=== PATIENT | male | born 1975 | race Caucasian/White ===

== ENCOUNTER → 2017-04-24 | Emergency (ER) | payer OTHER ==
[~2017-04-24] VITALS: Ht 175.3 cm; Wt 73.5 kg
== END | disposition left against medical advice (07) ==
LOC: ER 22:54
DX: Z53.20 Procedure and treatment not carried out because of patient's decision for unspecified reasons (principal)

== ENCOUNTER 2019-01-07 08:14 | Outpatient (CLI) | payer OTHER | END 2019-01-07 08:24 | disposition home or self-care (01) | LOC: RX STUDY 08:14 | DX: R10.13 Epigastric pain (principal) ==